=== PATIENT | male | born 1960 | race Caucasian/White ===

== ENCOUNTER 2019-09-23 14:58 | Emergency (ER) | payer MEDICARE ==
[~2019-09-23] VITALS: Ht 188 cm; Wt 95.0 kg
[2019-09-23 16:29] LABS: EOSINOPHILS # (AUTO) 0.1 X10'3 (0-0.9); HEMATOCRIT 52.4 % (42.0-52.0); LYMPHOCYTES % (AUTO) 23.2 % (21-51); MEAN PLATELET VOLUME 8.3 FL (7.4-10.4); MONOCYTES # (AUTO) 0.5 X10'3 (0-0.9); WHITE BLOOD COUNT 8.7 X10'3 (4.5-11.0)
[2019-09-23 16:31] LABS: BASOPHILS % (AUTO) 0.6 % (0-1); EOSINOPHILS % (AUTO) 1.5 % (0-6); MEAN CORPUSCULAR HGB CONC 35.3 g/dL (33.0-36.5); MEAN CORPUSCULAR VOLUME 85.2 FL (78-98); NEUTROPHILS % (AUTO) 68.7 % (42-75); PLATELET COUNT 593 X10'3 (140-440); RED BLOOD COUNT 6.15 X10'6 (4.70-6.10); RED CELL DISTRIBUTION WIDTH 13.7 % (11.5-14.5)
[2019-09-23 16:39] LABS: ALANINE AMINOTRANSFERASE 26 U/L (12-78); ALBUMIN 4.3 G/DL (3.4-5.0); ALBUMIN/GLOBULIN RATIO 1.3 (1.1-1.5); ALKALINE PHOSPHATASE 93 IU/L (46-116); ANION GAP 7 (8-16); ASPARTATE AMINO TRANSFERASE 17 U/L (10-37); BILIRUBIN,TOTAL 0.7 MG/DL (0.1-1.0); BLOOD UREA NITROGEN 12 MG/DL (7-18); BUN/CREATININE RATIO 12.6 (5.4-32.0); CALCIUM 9.1 MG/DL (8.5-10.1); CHLORIDE 103 MMOL/L (99-107); CREATININE 0.95 MG/DL (0.60-1.10); ETHANOL < 0.010 GM/DL (0.0-0.010); GLUCOSE 97 MG/DL (70-104); POTASSIUM 4.5 MMOL/L (3.5-5.1); SODIUM 137 MMOL/L (135-145); TOTAL CARBON DIOXIDE 26.7 MMOL/L (24-32); TOTAL PROTEIN 7.6 G/DL (6.4-8.2); eGFR 81 ML/MIN
[2019-09-23 16:45] LABS: HEMOGLOBIN 18.5 g/dl (14.0-17.9)
[2019-09-23] MEDS ORDERED: SPIR25TA5 PO (16:56)
[2019-09-23] MEDS ORDERED: MELO-102 PO (16:56)
[2019-09-23] MEDS ORDERED: ASPI-1265 PO (16:56)
[2019-09-23] MEDS ORDERED: LISI-600 PO (16:56)
[2019-09-23] MEDS ORDERED: CLON-528 PO (16:56)
[2019-09-23] MEDS ORDERED: CLOP75TA15 PO (16:56)
[2019-09-23] MEDS ORDERED: TRAZ-219 PO (16:56)
[2019-09-23] MEDS ORDERED: BUSP10TA11 PO (16:56)
[2019-09-23] MEDS ORDERED: ATOR80TA PO (16:56)
[2019-09-23] MEDS ORDERED: ADV50100 IH (16:56)
[2019-09-23] MEDS ORDERED: CARV-50 PO (16:56)
[2019-09-23] MEDS ORDERED: NITR0.4T48 SL (16:56)
--- NOTE | 2019-09-23 17:33 | NUR ---
Pt's 's number: [phone]. Her name is Cecile.
[2019-09-23 17:37] LABS: URINE AMPHETAMINE SCREEN POSITIVE (Neg); URINE BARBITUATE SCREEN NEGATIVE (Neg); URINE BENZODIAZEPINES SCREEN NEGATIVE (Neg); URINE CANNABINOID SCREEN POSITIVE (Neg); URINE COCAINE SCREEN NEGATIVE (Neg); URINE METHADONE SCREEN NEGATIVE (Neg); URINE OPIATE SCREEN NEGATIVE (Neg); URINE PHENCYCLIDINE SCREEN NEGATIVE (Neg)
[2019-09-23] MEDS ORDERED: nicotine 21mg patch - 24 hr TD ONE (17:40)
[2019-09-23] MEDS ORDERED: NAPR220T67 PO (17:49)
[2019-09-23] MEDS ORDERED: FLUT16SP13 (17:49)
[2019-09-23] MEDS ORDERED: ASPI81TA52 PO (17:49)
[2019-09-23] MEDS ORDERED: nitroGLYCERIN 0.4mg SUBLingual tab SL PRN (18:10)
--- NOTE | 2019-09-23 19:19 | NUR ---
Pt sitting in bed reading. No distress noted. Breathing even and unlabored.
[2019-09-23 19:35] LABS: CREATININE 0.85 MG/DL (0.60-1.10); POTASSIUM 4.3 MMOL/L (3.5-5.1); eGFR > 90 ML/MIN
[2019-09-23] MEDS: carVEDilol 12.5mg tablet PO SCH (20:45)
[2019-09-23] MEDS ORDERED: hydrOXYzine 25 MG tablet PO ONE (21:50)
--- NOTE | 2019-09-23 22:02 | NUR ---
Pt sitting on his bed appropriately socializing with peer. No distress noted.
--- NOTE | 2019-09-23 23:37 | NUR ---
Pt up to bathroom. No distress noted. Pt was administered Atarax 50mg to assist in decreasing anxiousness and help pt sleep. Will continue to monitor.
[2019-09-23 23:48] LABS: CLARITY,URINE TURBID (Clear); COLOR,URINE YELLOW (Yellow); GLUCOSE, URINE NEGATIVE (Neg); KETONES,URINE NEGATIVE (Neg); LEUKOCYTE ESTERASE ,URINE NEGATIVE (Neg); NITRITES, URINE NEGATIVE (Neg); OCCULT BLOOD,URINE TRACE-INTACT (Neg); PROTEIN,URINE NEGATIVE (Neg); UROBILINOGEN,URINE 0.2 E.U/dL (0.2-1.0)
[2019-09-23 23:50] LABS: UA COLLECTION TYPE VOIDED
[2019-09-24 00:19] LABS: AMORPHOUS URATES 3+; BACTERIA,URINE NONE SEEN /HPF (Neg); MUCUS STRANDS NONE SEEN /LPF (Neg); RBC,URINE 0-2 /HPF (0-2); SQUAMOUS EPITHELIAL CELL,UR NONE SEEN /LPF (FEW); WBC,URINE 0-4 /HPF (0-4)
--- NOTE | 2019-09-24 01:24 | NUR ---
Pt sleeing on back, no distress noted. Even, unlabored breathing noted.
[2019-09-24] MEDS ORDERED: hydrOXYzine 25 MG tablet PO ONE (02:25)
--- NOTE | 2019-09-24 03:35 | NUR ---
Pt continues to sleep, lying on left side. RR even and unlabored.
[2019-09-24 05:22] VITALS: BP_DIAS 83
--- NOTE | 2019-09-24 05:26 | NUR ---
Pt is sitting on the side of his bed eating a snack. No distress noted. RR even and unlabored.
--- NOTE | 2019-09-24 07:03 | NUR ---
Pt sitting in bed with eyes open watching staff. No distress noted. Breathing even and unlabored. Pt approached RN to introduce self and give a brief history of his skin cancer and various ailments. Pt also found socializing with peers and staff. Will continue to monitor.
[2019-09-24] MEDS ORDERED: clopidogrel 75mg tablet PO SCH (08:00)
[2019-09-24] MEDS ORDERED: atorvastatin 20mg tablet PO SCH (08:00)
[2019-09-24] MEDS ORDERED: lisinopril 20mg tablet PO SCH (08:00)
[2019-09-24] MEDS ORDERED: aspirin 81mg tablet.DR PO SCH (08:00)
[2019-09-24] MEDS ORDERED: spironolactone 25 MG tablet PO SCH (08:00)
[2019-09-24] MEDS ORDERED: fluticasone nasal spray 16GM bottle NS SCH (08:00)
[2019-09-24] MEDS: carVEDilol 12.5mg tablet PO SCH (08:22)
[2019-09-24 08:41] VITALS: BP_SYST 123
--- NOTE | 2019-09-24 09:30 | NUR ---
Pt visiting with SO at bedside and socializing with peers. He appears relieved to have SO at bedside. No complaints voiced at this time. Will continue to monitor.
--- NOTE | 2019-09-24 12:51 | NUR ---
Pt up to use the restroom and also speak with [facility] worker. S/O continues to be at bedside for support.
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
== END 2019-09-24 15:51 | disposition home or self-care (01) ==
LOC: ER 15:00
DX: F19.10 Other psychoactive substance abuse, uncomplicated (principal); R45.851 Suicidal ideations; F15.90 Other stimulant use, unspecified, uncomplicated; Z79.899 Other long term (current) drug therapy; Z88.0 Allergy status to penicillin; Z88.1 Allergy status to other antibiotic agents; Z79.82 Long term (current) use of aspirin
CPT/HCPCS: 36415; 80053; 80305; 80320; 81001; 82565; 84132; 84443; 85025; 99285; Z7610

== ENCOUNTER 2019-09-28 10:08 | Emergency (ER) | payer MEDICARE ==
[~2019-09-28] VITALS: Ht 190.5 cm; Wt 98.5 kg
[~2019-09-28 10:08] MED LIST: ASPI81TA52 PO; ATOR80TA PO; CARV-50 PO; CLOP75TA15 PO; FLUT16SP13; LISI-600 PO; NAPR220T67 PO; NITR0.4T48 SL; SPIR25TA5 PO; TRAZ-219 PO
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
[2019-09-28 11:23] LABS: BASOPHILS # (AUTO) 0.1 X10'3 (0-0.2); BASOPHILS % (AUTO) 1.3 % (0-1); EOSINOPHILS # (AUTO) 0.2 X10'3 (0-0.9); EOSINOPHILS % (AUTO) 2.3 % (0-6); HEMATOCRIT 51.1 % (42.0-52.0); HEMOGLOBIN 17.8 g/dl (14.0-17.9); LYMPHOCYTES # (AUTO) 2.4 X10'3 (1.1-4.8); LYMPHOCYTES % (AUTO) 30.5 % (21-51); MEAN CORPUSCULAR HEMOGLOBIN 30.2 PG (27.0-31.0); MEAN CORPUSCULAR HGB CONC 34.8 g/dL (33.0-36.5); MEAN CORPUSCULAR VOLUME 86.6 FL (78-98); MEAN PLATELET VOLUME 8.3 FL (7.4-10.4); MONOCYTES # (AUTO) 0.7 X10'3 (0-0.9); MONOCYTES % (AUTO) 8.5 % (2-12); NEUTROPHILS # (AUTO) 4.6 X10'3 (1.8-7.7); NEUTROPHILS % (AUTO) 57.4 % (42-75); PLATELET COUNT 592 X10'3 (140-440); RED CELL DISTRIBUTION WIDTH 14.1 % (11.5-14.5)
[2019-09-28 11:23] LABS: CLARITY,URINE CLEAR (Clear); COLOR,URINE YELLOW (Yellow); GLUCOSE, URINE NEGATIVE (Neg); KETONES,URINE NEGATIVE (Neg); LEUKOCYTE ESTERASE ,URINE NEGATIVE (Neg); NITRITES, URINE NEGATIVE (Neg); OCCULT BLOOD,URINE NEGATIVE (Neg); PROTEIN,URINE NEGATIVE (Neg); UROBILINOGEN,URINE 0.2 E.U/dL (0.2-1.0)
[2019-09-28 11:25] LABS: UA COLLECTION TYPE CLN CATCH MIDSTREAM
[2019-09-28] MEDS ORDERED: naproxen sodium 220mg tablet PO PRN (11:30)
[2019-09-28 11:36] LABS: ALANINE AMINOTRANSFERASE 34 U/L (12-78); ALBUMIN/GLOBULIN RATIO 1.2 (1.1-1.5); ALKALINE PHOSPHATASE 92 IU/L (46-116); ANION GAP 5 (8-16); ASPARTATE AMINO TRANSFERASE 18 U/L (10-37); BILIRUBIN,TOTAL 0.7 MG/DL (0.1-1.0); BLOOD UREA NITROGEN 11 MG/DL (7-18); CALCIUM 8.9 MG/DL (8.5-10.1); CHLORIDE 104 MMOL/L (99-107); CREATININE 0.92 MG/DL (0.60-1.10); GLUCOSE 85 MG/DL (70-104); POTASSIUM 4.2 MMOL/L (3.5-5.1); SODIUM 138 MMOL/L (135-145); TOTAL CARBON DIOXIDE 28.7 MMOL/L (24-32); TOTAL PROTEIN 7.3 G/DL (6.4-8.2); eGFR 84 ML/MIN
[2019-09-28 11:37] LABS: URINE AMPHETAMINE SCREEN NEGATIVE (Neg); URINE BARBITUATE SCREEN NEGATIVE (Neg); URINE BENZODIAZEPINES SCREEN NEGATIVE (Neg); URINE CANNABINOID SCREEN POSITIVE (Neg); URINE COCAINE SCREEN NEGATIVE (Neg); URINE METHADONE SCREEN NEGATIVE (Neg); URINE OPIATE SCREEN NEGATIVE (Neg); URINE PHENCYCLIDINE SCREEN NEGATIVE (Neg)
[2019-09-28 11:45] LABS: ETHANOL < 0.010 GM/DL (0.0-0.010)
--- NOTE | 2019-09-28 12:07 | NUR ---
PACKET FAXED TO [facility].
--- NOTE | 2019-09-28 12:27 | NUR ---
PT BECOMING INCREASINGLY AGITATED, PACING AROUND THE ROOM, SLAMMING ROOM DOORS. AWARE.
[2019-09-28] MEDS ORDERED: LORazepam 1 MG tablet PO ONE (12:30)
--- NOTE | 2019-09-28 12:59 | NUR ---
Pt SO went home. Pt eating lunch
--- NOTE | 2019-09-28 13:37 | NUR ---
Pt asleep on right side in no apparent distress. Respirations are even and unlabored
--- NOTE | 2019-09-28 14:10 | NUR ---
Pt asleep on left side in no apparent distress. Respirations are even and unlabored
--- NOTE | 2019-09-28 14:38 | NUR ---
Pt up to the bathroom
--- NOTE | 2019-09-28 15:54 | NUR ---
Pt asleep on right side in no apparent distress. Respirations are even and unlabored
--- NOTE | 2019-09-28 16:20 | NUR ---
Giving primary RN break, pt. sleeping on left side in no distress.
--- NOTE | 2019-09-28 16:36 | NUR ---
[facility] at bedside
--- NOTE | 2019-09-28 17:17 | NUR ---
Pt up to bathroom
--- NOTE | 2019-09-28 18:56 | NUR ---
One to one with the patient to assess for the presense of depressive symptoms. The patient is alert and oriented but has poor short term memory. He denies suicidal thoughts "no never" HE denies thoughts to harm others. When asked why he was here he stated "because I'm driving everybody nuts. I say the same things over and over again" He stated his mood was "good"
--- NOTE | 2019-09-28 19:18 | NUR ---
The patient approached the nursing station and was angry and irritable. Became hostile with offset platemaker. Beronica called.
--- NOTE | 2019-09-28 19:58 | NUR ---
PT LEFT A NOTE IN FRONT OF ME ON NURSES STATION AND SAID '' NOT ULTIMATOM OR ANYTHING LIKE THAT" THE NOTE READS ''BY HIMSLEF WHEN IM DISCHARGED UNDERSTOOD'' WITH A ''YES'', ''NO'', CHECK BOX ON IT
[2019-09-28] MEDS ORDERED: carVEDilol 12.5mg tablet PO SCH (20:00)
--- NOTE | 2019-09-28 20:18 | NUR ---
THe patient's behavior has been erratic. He is making delusional statements. He stated he 30 times. He reports that he worked for [email or web address], [employer], [employer] etc. When asked how many jobs he has had he stated "you have to ask Marcos" His thought pattern is difficult to follow at times. He reports he can speak many languages. His mood is labile.
[2019-09-28] MEDS ORDERED: traZODone 50mg tablet PO SCH (21:00)
[2019-09-28 22:17] VITALS: BP 115/76
[2019-09-29] MEDS ORDERED: atorvastatin 20mg tablet PO SCH (08:00)
[2019-09-29] MEDS ORDERED: spironolactone 25 MG tablet PO SCH (08:00)
[2019-09-29] MEDS ORDERED: lisinopril 20mg tablet PO SCH (08:00)
[2019-09-29] MEDS ORDERED: clopidogrel 75mg tablet PO SCH (08:00)
[2019-09-29] MEDS ORDERED: aspirin 81mg tablet.DR PO SCH (08:00)
== END 2019-09-28 22:42 | disposition home or self-care (01) ==
LOC: ER 10:08
DX: F79 Unspecified intellectual disabilities (principal); R45.851 Suicidal ideations; F12.90 Cannabis use, unspecified, uncomplicated; F15.90 Other stimulant use, unspecified, uncomplicated; Z79.899 Other long term (current) drug therapy; Z88.0 Allergy status to penicillin; Z88.1 Allergy status to other antibiotic agents; Z79.82 Long term (current) use of aspirin
CPT/HCPCS: 36415; 80053; 80305; 80320; 81003; 84443; 85025; 99284

== ENCOUNTER 2019-10-04 03:17 | Emergency (ER) | payer MEDICARE ==
[~2019-10-04] VITALS: Ht 188 cm; Wt 100.0 kg
[~2019-10-04 03:17] MED LIST changes: -FLUT16SP13; -NITR0.4T48 SL
[2019-10-04 03:33] VITALS: BP 139/76
== END 2019-10-04 05:44 | disposition left against medical advice (07) ==
LOC: ER 03:18
DX: M79.602 Pain in left arm (principal); Z53.21 Procedure and treatment not carried out due to patient leaving prior to being seen by health care provider

== ENCOUNTER 2019-10-15 01:28 | Emergency (ER) | payer MEDICARE ==
[~2019-10-15] VITALS: Ht 188 cm; Wt 101.4 kg
[~2019-10-15 01:28] MED LIST changes: -TRAZ-219 PO; +TRAZ-256 PO
[2019-10-15 01:46] VITALS: BP 133/92
== END 2019-10-15 02:42 | disposition left against medical advice (07) ==
LOC: ER 01:28
DX: Z76.0 Encounter for issue of repeat prescription (principal); Z53.21 Procedure and treatment not carried out due to patient leaving prior to being seen by health care provider

== ENCOUNTER 2020-03-10 10:15 | Emergency (ER) | payer MEDICARE ==
[~2020-03-10] VITALS: Ht 188 cm; Wt 110.0 kg
[2020-03-10 11:00] LABS: BASOPHILS # (AUTO) 0.1 X10'3 (0-0.2); BASOPHILS % (AUTO) 0.7 % (0-1); EOSINOPHILS # (AUTO) 0.2 X10'3 (0-0.9); EOSINOPHILS % (AUTO) 2.5 % (0-6); HEMATOCRIT 49.7 % (42.0-52.0); HEMOGLOBIN 17.1 g/dl (14.0-17.9); LYMPHOCYTES # (AUTO) 2.2 X10'3 (1.1-4.8); LYMPHOCYTES % (AUTO) 26.8 % (21-51); MEAN CORPUSCULAR HEMOGLOBIN 29.6 PG (27.0-31.0); MEAN CORPUSCULAR HGB CONC 34.4 g/dL (33.0-36.5); MEAN PLATELET VOLUME 8.2 FL (7.4-10.4); MONOCYTES # (AUTO) 0.7 X10'3 (0-0.9); MONOCYTES % (AUTO) 7.8 % (2-12); NEUTROPHILS # (AUTO) 5.2 X10'3 (1.8-7.7); NEUTROPHILS % (AUTO) 62.2 % (42-75); PLATELET COUNT 590 X10'3 (140-440); RED BLOOD COUNT 5.78 X10'6 (4.70-6.10); RED CELL DISTRIBUTION WIDTH 13.9 % (11.5-14.5); WHITE BLOOD COUNT 8.3 X10'3 (4.5-11.0)
[2020-03-10 11:03] VITALS: BP 124/85
[2020-03-10 11:06] LABS: PARTIAL THROMBOPLASTIN TIME 34 SECONDS (22-32)
[2020-03-10 11:08] LABS: ALANINE AMINOTRANSFERASE 45 U/L (12-78); ALBUMIN 3.8 G/DL (3.4-5.0); ALBUMIN/GLOBULIN RATIO 1.1 (1.1-1.5); ALKALINE PHOSPHATASE 104 IU/L (46-116); ANION GAP 9 (8-16); ASPARTATE AMINO TRANSFERASE 25 U/L (10-37); BILIRUBIN,TOTAL 0.6 MG/DL (0.1-1.0); BLOOD UREA NITROGEN 11 MG/DL (7-18); BUN/CREATININE RATIO 11.8 (5.4-32.0); CALCIUM 8.6 MG/DL (8.5-10.1); CHLORIDE 104 MMOL/L (99-107); CREATININE 0.93 MG/DL (0.60-1.10); GLUCOSE 95 MG/DL (70-104); LIPASE 169 U/L (73-393); POTASSIUM 4.2 MMOL/L (3.5-5.1); SODIUM 138 MMOL/L (135-145); TOTAL PROTEIN 7.4 G/DL (6.4-8.2); eGFR 83 ML/MIN
[2020-03-10 11:27] LABS: CLARITY,URINE CLEAR (Clear); COLOR,URINE YELLOW (Yellow); GLUCOSE, URINE NEGATIVE (Neg); KETONES,URINE NEGATIVE (Neg); LEUKOCYTE ESTERASE ,URINE NEGATIVE (Neg); NITRITES, URINE NEGATIVE (Neg); OCCULT BLOOD,URINE NEGATIVE (Neg); PH,URINE 5.5 (4.8-8.0); PROTEIN,URINE NEGATIVE (Neg); UA COLLECTION TYPE URINAL; UROBILINOGEN,URINE 0.2 E.U/dL (0.2-1.0)
[2020-03-10] MEDS ORDERED: PANT-47 PO (11:30)
== END 2020-03-10 11:40 | disposition home or self-care (01) ==
LOC: ER 10:15
DX: R10.84 Generalized abdominal pain (principal); R19.5 Other fecal abnormalities; I25.10 Atherosclerotic heart disease of native coronary artery without angina pectoris; I25.2 Old myocardial infarction; F12.90 Cannabis use, unspecified, uncomplicated; F15.90 Other stimulant use, unspecified, uncomplicated; F17.200 Nicotine dependence, unspecified, uncomplicated; Z86.73 Personal history of transient ischemic attack (TIA), and cerebral infarction without residual deficits; Z88.0 Allergy status to penicillin; Z79.82 Long term (current) use of aspirin; Z79.899 Other long term (current) drug therapy
CPT/HCPCS: 36415; 71045; 74176; 80053; 81003; 83690; 84484; 85025; 85610; 85730; 93005; 99285

== ENCOUNTER 2020-05-22 11:54 | Emergency (ER) | payer MEDICARE ==
[~2020-05-22] VITALS: Ht 180.3 cm; Wt 80.0 kg
[~2020-05-22 11:54] MED LIST changes: +PANT-47 PO
[2020-05-22 12:03] VITALS: BP 112/77
[2020-05-22] MEDS ORDERED: AZIT-72 PO (12:31)
== END 2020-05-22 12:42 | disposition home or self-care (01) ==
LOC: ER 11:55
DX: H66.92 Otitis media, unspecified, left ear (principal); R05 Cough; I25.10 Atherosclerotic heart disease of native coronary artery without angina pectoris; I25.2 Old myocardial infarction; F17.200 Nicotine dependence, unspecified, uncomplicated; F10.10 Alcohol abuse, uncomplicated; F12.90 Cannabis use, unspecified, uncomplicated; F15.90 Other stimulant use, unspecified, uncomplicated; Z86.73 Personal history of transient ischemic attack (TIA), and cerebral infarction without residual deficits; Z88.0 Allergy status to penicillin; Z79.82 Long term (current) use of aspirin; Z79.2 Long term (current) use of antibiotics; Z79.899 Other long term (current) drug therapy; Y90.9 Presence of alcohol in blood, level not specified
CPT/HCPCS: 99283

== ENCOUNTER 2020-11-24 07:48 | Emergency (ER) | payer MEDICARE, OTHER ==
[~2020-11-24] VITALS: Ht 188 cm; Wt 100.0 kg
[~2020-11-24 07:48] MED LIST changes: -LISI-600 PO; +LISI20TA28 PO
[2020-11-24 07:49] VITALS: BP 143/87
[2020-11-24] MEDS ORDERED: LIDOcaine 1% W/epiNEPHrine 1:100,000 20ml vial ONE (08:00)
[2020-11-24] MEDS ORDERED: HYDROcodone/acetaminophen 10/325mg tab PO ONE (09:00)
[2020-11-24] MEDS ORDERED: ibuprofen 200mg tablet PO ONE (09:00)
[2020-11-24] MEDS ORDERED: ondansetron 4mg rapidly disintigrating tab PO ONE (09:00)
[2020-11-24] MEDS ORDERED: TETanus/Pertussis (Acell)/Diphther VAC/PF (Tdap-Adult) 0.5ml syringe IMVAC ONE (09:00)
[2020-11-24] MEDS ORDERED: clindamycin 150mg capsule PO ONE (09:00)
--- NOTE | 2020-11-24 10:01 | NUR ---
Dr Mcgarry at bedside.
[2020-11-24] MEDS ORDERED: CLIN150C2 PO (10:09)
== END 2020-11-24 10:45 | disposition home or self-care (01) ==
LOC: ER 07:48
DX: L02.31 Cutaneous abscess of buttock (principal); I25.10 Atherosclerotic heart disease of native coronary artery without angina pectoris; I25.2 Old myocardial infarction; F17.200 Nicotine dependence, unspecified, uncomplicated; F12.90 Cannabis use, unspecified, uncomplicated; F15.90 Other stimulant use, unspecified, uncomplicated; Z72.89 Other problems related to lifestyle; Z86.73 Personal history of transient ischemic attack (TIA), and cerebral infarction without residual deficits; Z88.1 Allergy status to other antibiotic agents; Z79.82 Long term (current) use of aspirin; Z79.2 Long term (current) use of antibiotics; Z79.899 Other long term (current) drug therapy; Z98.890 Other specified postprocedural states
CPT/HCPCS: 10060; 90471; 90715; 99284

== ENCOUNTER 2021-01-17 16:15 | Inpatient (IN) | payer OTHER ==
[~2021-01-17] VITALS: Ht 188 cm; Wt 97.0 kg
[2021-01-17] MEDS ORDERED: aspirin 81mg tab.chew PO ONE (16:40)
[2021-01-17 16:58] LABS: BASOPHILS % (AUTO) 0.5 % (0-1); EOSINOPHILS # (AUTO) 0.2 X10'3 (0-0.9); HEMATOCRIT 48.6 % (42.0-52.0); LYMPHOCYTES # (AUTO) 1.7 X10'3 (1.1-4.8); LYMPHOCYTES % (AUTO) 21.5 % (21-51); MEAN CORPUSCULAR HEMOGLOBIN 28.6 PG (27.0-31.0); MEAN CORPUSCULAR HGB CONC 32.9 g/dL (33.0-36.5); MEAN CORPUSCULAR VOLUME 86.9 FL (78-98); MEAN PLATELET VOLUME 8.6 FL (7.4-10.4); MONOCYTES # (AUTO) 0.4 X10'3 (0-0.9); MONOCYTES % (AUTO) 5.5 % (2-12); NEUTROPHILS # (AUTO) 5.5 X10'3 (1.8-7.7); NEUTROPHILS % (AUTO) 70.5 % (42-75); PLATELET COUNT 447 X10'3 (140-440); RED BLOOD COUNT 5.59 X10'6 (4.70-6.10); RED CELL DISTRIBUTION WIDTH 14.1 % (11.5-14.5); WHITE BLOOD COUNT 7.8 X10'3 (4.5-11.0)
[2021-01-17 17:09] LABS: PARTIAL THROMBOPLASTIN TIME 30 SECONDS (22-32)
[2021-01-17 17:12] LABS: ALANINE AMINOTRANSFERASE 26 U/L (12-78); ALBUMIN 3.7 G/DL (3.4-5.0); ALBUMIN/GLOBULIN RATIO 1.2 (1.1-1.5); ALKALINE PHOSPHATASE 76 IU/L (46-116); ANION GAP 9 (8-16); ASPARTATE AMINO TRANSFERASE 21 U/L (10-37); BILIRUBIN,TOTAL 0.9 MG/DL (0.1-1.0); BLOOD UREA NITROGEN 17 MG/DL (7-18); CALCIUM 8.7 MG/DL (8.5-10.1); CHLORIDE 106 MMOL/L (99-107); GLUCOSE 76 MG/DL (70-104); POTASSIUM 3.8 MMOL/L (3.5-5.1); SODIUM 144 MMOL/L (135-145); TOTAL CARBON DIOXIDE 29.2 MMOL/L (24-32); TOTAL PROTEIN 6.8 G/DL (6.4-8.2); eGFR 76 ML/MIN
[2021-01-17 18:30] LABS: URINE AMPHETAMINE SCREEN NEGATIVE (Neg); URINE BARBITUATE SCREEN NEGATIVE (Neg); URINE BENZODIAZEPINES SCREEN NEGATIVE (Neg); URINE CANNABINOID SCREEN POSITIVE (Neg); URINE COCAINE SCREEN NEGATIVE (Neg); URINE METHADONE SCREEN NEGATIVE (Neg); URINE OPIATE SCREEN NEGATIVE (Neg); URINE PHENCYCLIDINE SCREEN NEGATIVE (Neg)
[2021-01-17] MEDS ORDERED: normal saline 1000ML IV soln IVB ONE (19:45)
[2021-01-17] MEDS ORDERED: potassium Cl 20 mEq SR tablet PO PRN ×2 (19:55)
[2021-01-17] MEDS ORDERED: aminophylline 250mg/10ml inj. IV PRN (19:55)
[2021-01-17] MEDS ORDERED: HYDROcodone/acetaminophen 10/325mg tab PO PRN (19:55)
[2021-01-17] MEDS ORDERED: magnesium 4gm in 100ml NS 100 ML IV PRN (19:55)
[2021-01-17] MEDS ORDERED: regadenoson 0.4mg/5ml syringe IV PRN (19:55)
[2021-01-17] MEDS ORDERED: acetaminophen 325mg tablet PO PRN (19:55)
[2021-01-17] MEDS ORDERED: magnesium Cl slow-release 64mg tablet PO PRN (19:55)
[2021-01-17] MEDS ORDERED: morphine 2 MG/ML inj. syringe IV PRN ×2 (19:55)
[2021-01-17] MEDS ORDERED: nitroGLYCERIN 0.4mg SUBLingual tab SL PRN (19:55)
[2021-01-17] MEDS ORDERED: ondansetron/PF 4mg/2ml inj IV PRN (19:55)
[2021-01-17] MEDS ORDERED: potassium Cl 40MEQ/1/2NS 520ml 520 ML IV PRN ×2 (19:55)
[2021-01-17] MEDS ORDERED: HYDROcodone/acetaminophen 5mg/325mg tablet PO PRN (19:55)
[2021-01-17] MEDS ORDERED: metoprolol tartrate 1mg/ml inj IV PRN (19:55)
[2021-01-17] MEDS ORDERED: magnesium 2GM in 50ml NS 50 ML IV PRN (19:55)
[2021-01-17] MEDS: K and/or MAG REPLACEMENT MC SCH (20:00)
[2021-01-17] MEDS ORDERED: MELO-102 PO (20:32)
[2021-01-17] MEDS ORDERED: OMEP20TA23 PO (20:35)
[2021-01-17] MEDS ORDERED: PRAZ2CAP2 PO (20:36)
[2021-01-17] MEDS ORDERED: QUET25TA PO (20:37)
[2021-01-17] MEDS ORDERED: BUSP10TA11 PO (20:40)
[2021-01-17] MEDS ORDERED: BUSP5TAB3 PO (20:40)
[2021-01-17] MEDS ORDERED: D3 (20:44)
[2021-01-17] MEDS ORDERED: temazepam 15mg capsule PO PRN (21:00)
[2021-01-17] MEDS: normal saline 1000ml 1,000 ML IV SCH (21:11)
[2021-01-17] MEDS: docusate sod 100mg capsule PO SCH (21:12)
[2021-01-17] MEDS: heparin, porcine 5000 units/ml vial SQ SCH (21:12)
--- NOTE | 2021-01-18 06:30 | NUR ---
Assumed care of pt. Sleeping in [facility]. RR e/u. Awaiting inpt bed. Will continue to monitor.
[2021-01-18] MEDS: normal saline 1000ml 1,000 ML IV SCH ×2 (06:58→15:53)
[2021-01-18] MEDS: pantoprazole 40mg Tablet.DR PO SCH ×2 (07:30→10:24)
[2021-01-18 07:52] LABS: BASOPHILS # (AUTO) 0.1 X10'3 (0-0.2); BASOPHILS % (AUTO) 0.8 % (0-1); EOSINOPHILS # (AUTO) 0.2 X10'3 (0-0.9); EOSINOPHILS % (AUTO) 3.1 % (0-6); HEMATOCRIT 42.8 % (42.0-52.0); HEMOGLOBIN 14.6 g/dl (14.0-17.9); LYMPHOCYTES % (AUTO) 29.9 % (21-51); MEAN CORPUSCULAR HEMOGLOBIN 29.3 PG (27.0-31.0); MEAN CORPUSCULAR HGB CONC 34.1 g/dL (33.0-36.5); MEAN CORPUSCULAR VOLUME 85.9 FL (78-98); MEAN PLATELET VOLUME 8.4 FL (7.4-10.4); MONOCYTES # (AUTO) 0.4 X10'3 (0-0.9); MONOCYTES % (AUTO) 5.5 % (2-12); NEUTROPHILS % (AUTO) 60.7 % (42-75); PLATELET COUNT 406 X10'3 (140-440); RED BLOOD COUNT 4.98 X10'6 (4.70-6.10); RED CELL DISTRIBUTION WIDTH 14.3 % (11.5-14.5); WHITE BLOOD COUNT 6.5 X10'3 (4.5-11.0)
[2021-01-18] MEDS: K and/or MAG REPLACEMENT MC SCH (08:00)
[2021-01-18] MEDS ORDERED: carVEDilol 12.5mg tablet PO SCH (08:00)
[2021-01-18] MEDS ORDERED: atorvastatin 20mg tablet PO SCH (08:00)
[2021-01-18] MEDS ORDERED: aspirin 81mg tablet.DR PO SCH (08:00)
[2021-01-18] MEDS ORDERED: spironolactone 25 MG tablet PO SCH (08:00)
[2021-01-18] MEDS ORDERED: lisinopril 20mg tablet PO SCH (08:00)
[2021-01-18] MEDS: docusate sod 100mg capsule PO SCH (08:00)
[2021-01-18] MEDS ORDERED: busPIRone 5mg tablet PO SCH (08:00)
[2021-01-18 08:12] LABS: ALANINE AMINOTRANSFERASE 19 U/L (12-78); ALBUMIN/GLOBULIN RATIO 1.1 (1.1-1.5); ALKALINE PHOSPHATASE 66 IU/L (46-116); ANION GAP 8 (8-16); ASPARTATE AMINO TRANSFERASE 17 U/L (10-37); BILIRUBIN,TOTAL 0.7 MG/DL (0.1-1.0); BLOOD UREA NITROGEN 19 MG/DL (7-18); BUN/CREATININE RATIO 23.5 (5.4-32.0); CALCIUM 8.2 MG/DL (8.5-10.1); CHLORIDE 111 MMOL/L (99-107); CREATININE 0.81 MG/DL (0.60-1.10); GLUCOSE 98 MG/DL (70-104); POTASSIUM 4.2 MMOL/L (3.5-5.1); SODIUM 144 MMOL/L (135-145); TOTAL PROTEIN 5.7 G/DL (6.4-8.2); eGFR > 90 ML/MIN
[2021-01-18 08:15] LABS: CHOL/HDL RATIO 3.2 (0.00-4.99); CHOLESTEROL 103 MG/DL (0-200); HDL CHOLESTEROL 32 MG/DL (35-60); LDL CHOLESTEROL 58 MG/DL (50-100); MAGNESIUM 1.7 MG/DL (1.5-2.4); TRIGLYCERIDES 104 MG/DL (20-135)
[2021-01-18] MEDS: heparin, porcine 5000 units/ml vial SQ SCH (10:00)
--- NOTE | 2021-01-18 10:25 | NUR ---
Nuc med cancelled stress test d/t pt having stress test done last week at Dr. Dexter's office.
--- NOTE | 2021-01-18 11:11 | NUR ---
US tech at bedside for echo study as ordered.
[2021-01-18] MEDS ORDERED: NICO-687 TOP (16:05)
[2021-01-18 17:00] VITALS: BP 98/56
[2021-01-18] MEDS ORDERED: prazosin 1mg capsule PO SCH (21:00)
[2021-01-18] MEDS ORDERED: QUEtiapine 25mg tablet PO SCH (21:00)
== END 2021-01-18 17:00 | disposition home or self-care (01) | DRG 880 ==
LOC: ER 16:16 → ED HOLD 19:53
PROVIDERS: ADMIT Internal Medicine; ATTEND Family Medicine
DX: F41.9 Anxiety disorder, unspecified (principal); G89.29 Other chronic pain; I25.10 Atherosclerotic heart disease of native coronary artery without angina pectoris; F12.90 Cannabis use, unspecified, uncomplicated; F17.210 Nicotine dependence, cigarettes, uncomplicated; M25.50 Pain in unspecified joint; F10.10 Alcohol abuse, uncomplicated; I25.2 Old myocardial infarction; Z86.73 Personal history of transient ischemic attack (TIA), and cerebral infarction without residual deficits; Z95.1 Presence of aortocoronary bypass graft; Z95.5 Presence of coronary angioplasty implant and graft; Z88.1 Allergy status to other antibiotic agents; Z71.6 Tobacco abuse counseling
CPT/HCPCS: 36415; 71045; 80053; 80061; 80305; 83735; 83880; 84484; 85025; 85610; 85730; 93005; 93306; 93308; 99285; G0378; J1644; J7030

== ENCOUNTER 2021-02-26 12:36 | Day surgery (SDC) | payer MEDICARE ==
[2021-02-21 11:34] LABS: CLARITY,URINE SLIGHTLY CLOUDY (Clear); COLOR,URINE YELLOW (Yellow); GLUCOSE, URINE NEGATIVE (Neg); KETONES,URINE NEGATIVE (Neg); LEUKOCYTE ESTERASE ,URINE NEGATIVE (Neg); NITRITES, URINE NEGATIVE (Neg); OCCULT BLOOD,URINE NEGATIVE (Neg); PROTEIN,URINE NEGATIVE (Neg); UROBILINOGEN,URINE 0.2 E.U/dL (0.2-1.0)
[2021-02-21 11:36] LABS: BASOPHILS # (AUTO) 0.1 X10'3 (0-0.2); BASOPHILS % (AUTO) 0.7 % (0-1); EOSINOPHILS # (AUTO) 0.2 X10'3 (0-0.9); EOSINOPHILS % (AUTO) 2.7 % (0-6); HEMATOCRIT 49.9 % (42.0-52.0); HEMOGLOBIN 17.1 g/dl (14.0-17.9); LYMPHOCYTES # (AUTO) 1.6 X10'3 (1.1-4.8); MEAN CORPUSCULAR HEMOGLOBIN 29.7 PG (27.0-31.0); MEAN CORPUSCULAR HGB CONC 34.3 g/dL (33.0-36.5); MEAN CORPUSCULAR VOLUME 86.6 FL (78-98); MEAN PLATELET VOLUME 8.4 FL (7.4-10.4); MONOCYTES # (AUTO) 0.4 X10'3 (0-0.9); MONOCYTES % (AUTO) 5.8 % (2-12); NEUTROPHILS # (AUTO) 4.8 X10'3 (1.8-7.7); NEUTROPHILS % (AUTO) 67.8 % (42-75); PLATELET COUNT 433 X10'3 (140-440); RED BLOOD COUNT 5.76 X10'6 (4.70-6.10); RED CELL DISTRIBUTION WIDTH 14.9 % (11.5-14.5); WHITE BLOOD COUNT 7.1 X10'3 (4.5-11.0)
[2021-02-21 11:42] LABS: UA COLLECTION TYPE CLN CATCH MIDSTREAM
[2021-02-21 11:43] LABS: BACTERIA,URINE 1+ /HPF (Neg); HYALINE CASTS 0-3 /LPF (NEGATIVE); MUCUS STRANDS MANY /LPF (Neg); RBC,URINE 0-2 /HPF (0-2); SQUAMOUS EPITHELIAL CELL,UR FEW /LPF (FEW); WBC,URINE 0-4 /HPF (0-4)
[2021-02-21 11:45] LABS: ALBUMIN 3.8 G/DL (3.4-5.0); ANION GAP 10 (8-16); BLOOD UREA NITROGEN 17 MG/DL (7-18); CALCIUM 8.9 MG/DL (8.5-10.1); CHLORIDE 105 MMOL/L (99-107); CREATININE 0.81 MG/DL (0.60-1.10); GLUCOSE 88 MG/DL (70-104); POTASSIUM 4.1 MMOL/L (3.5-5.1); SODIUM 140 MMOL/L (135-145); TOTAL CARBON DIOXIDE 24.8 MMOL/L (24-32); eGFR > 90 ML/MIN
[2021-02-21 11:47] LABS: PARTIAL THROMBOPLASTIN TIME 31 SECONDS (22-32)
[2021-02-26] VITALS (9 sets, daily range): BP systolic 92–125; BP diastolic 49–79
[~2021-02-26] VITALS: Ht 188 cm; Wt 94.9 kg
[~2021-02-26 12:36] MED LIST changes: +BUSP10TA11 PO; +BUSP5TAB3 PO; -CLOP75TA15 PO; +D3; +MELO-102 PO; -NAPR220T67 PO; +OMEP20TA23 PO; -PANT-47 PO; +PRAZ2CAP2 PO; +QUET25TA PO
[2021-02-26] MEDS ORDERED: normal saline 1000ml 1,000 ML IV SCH (13:00)
[2021-02-26] MEDS ORDERED: cefazolin/dext.iso 2gm/100ml 100 ML IV ONE (13:00)
[2021-02-26] MEDS ORDERED: BUS15T PO (13:09)
[2021-02-26] MEDS ORDERED: BACL-11 PO (13:10)
[2021-02-26] MEDS ORDERED: ceFAZolin 1000mg inj ONE (15:11)
[2021-02-26] MEDS ORDERED: midazolam 1 mg/ML 2ml injection ONE ×2 (15:11→15:57)
[2021-02-26] MEDS ORDERED: fentaNYL/PF 50MCG/1 ML 2ML syringe ONE (15:11)
[2021-02-26] MEDS ORDERED: ceFAZolin 2gm in dextrose, iso 50 ML IV ONE (15:11)
[2021-02-26] MEDS ORDERED: LIDOcaine 1% W/epiNEPHrine 1:100,000 20ml vial ONE (15:12)
[2021-02-26] MEDS ORDERED: HYDROcodone/acetaminophen 5mg/325mg tablet PO PRN (17:05)
[2021-02-26] MEDS ORDERED: LORazepam 1 MG tablet PO PRN (17:05)
[2021-02-26] MEDS ORDERED: HYDROcodone/acetaminophen 10/325mg tab PO PRN (17:05)
[2021-02-26] MEDS ORDERED: pneumococcal 23-VAL P-sac vacc 25 mcg/0.5ml vial IMVAC ONE (20:50)
== END 2021-02-26 18:45 | disposition home or self-care (01) ==
LOC: SSTAY O 12:36
PROVIDERS: ATTEND Internal Medicine Interventional Cardiology
DX: I42.0 Dilated cardiomyopathy (principal); I25.5 Ischemic cardiomyopathy; I11.0 Hypertensive heart disease with heart failure; I50.22 Chronic systolic (congestive) heart failure; F41.9 Anxiety disorder, unspecified; F17.210 Nicotine dependence, cigarettes, uncomplicated; I25.110 Atherosclerotic heart disease of native coronary artery with unstable angina pectoris; E78.5 Hyperlipidemia, unspecified; G89.29 Other chronic pain; Z79.899 Other long term (current) drug therapy; Z79.82 Long term (current) use of aspirin; Z85.828 Personal history of other malignant neoplasm of skin; Z88.0 Allergy status to penicillin; Z88.8 Allergy status to other drugs, medicaments and biological substances
CPT/HCPCS: 33249; 36415; 80048; 81001; 85025; 85610; 85730; 93005; 99152; 99153; C1721; C1895; J0690; J2250; J3010; A4565; A4620; A6258

== ENCOUNTER 2022-08-23 19:50 | Emergency (ER) | payer MEDICARE, MEDICAID ==
[~2022-08-23] VITALS: Ht 188 cm; Wt 95.5 kg
[~2022-08-23 19:50] MED LIST changes: +BACL-11 PO; +BUS15T PO; -BUSP10TA11 PO; -BUSP5TAB3 PO; -D3; -OMEP20TA23 PO; -PRAZ2CAP2 PO; -QUET25TA PO
[2022-08-23 20:21] VITALS: BP 134/84
[2022-08-23 21:02] LABS: BASOPHILS # (AUTO) 0.1 X10'3 (0-0.2); BASOPHILS % (AUTO) 0.6 % (0-1); EOSINOPHILS # (AUTO) 0.3 X10'3 (0-0.9); EOSINOPHILS % (AUTO) 2.2 % (0-6); HEMATOCRIT 46.7 % (42.0-52.0); HEMOGLOBIN 15.4 g/dl (14.0-17.9); LYMPHOCYTES # (AUTO) 2.4 X10'3 (1.1-4.8); LYMPHOCYTES % (AUTO) 20.3 % (21-51); MEAN CORPUSCULAR HEMOGLOBIN 28.4 PG (27.0-31.0); MEAN CORPUSCULAR VOLUME 85.9 FL (78-98); MEAN PLATELET VOLUME 8.2 FL (7.4-10.4); MONOCYTES % (AUTO) 8.3 % (2-12); NEUTROPHILS # (AUTO) 8.1 X10'3 (1.8-7.7); NEUTROPHILS % (AUTO) 68.6 % (42-75); PLATELET COUNT 549 X10'3 (140-440); RED BLOOD COUNT 5.44 X10'6 (4.70-6.10); RED CELL DISTRIBUTION WIDTH 14.2 % (11.5-14.5); WHITE BLOOD COUNT 11.8 X10'3 (4.5-11.0)
[2022-08-23 21:09] LABS: ALANINE AMINOTRANSFERASE 28 U/L (12-78); ALBUMIN/GLOBULIN RATIO 1.2 (1.1-1.5); ALKALINE PHOSPHATASE 98 IU/L (46-116); ANION GAP 7 (8-16); ASPARTATE AMINO TRANSFERASE 27 U/L (10-37); BILIRUBIN,TOTAL 0.7 MG/DL (0.1-1.0); BLOOD UREA NITROGEN 16 MG/DL (7-18); BUN/CREATININE RATIO 17.2 (5.4-32.0); CALCIUM 9.2 MG/DL (8.5-10.1); CHLORIDE 105 MMOL/L (99-107); CREATININE 0.93 MG/DL (0.60-1.10); GLUCOSE 121 MG/DL (70-104); POTASSIUM 4.4 MMOL/L (3.5-5.1); SODIUM 141 MMOL/L (135-145); TOTAL CARBON DIOXIDE 28.9 MMOL/L (24-32); TOTAL PROTEIN 7.3 G/DL (6.4-8.2); eGFR 82 ML/MIN
[2022-08-23 21:17] LABS: ETHANOL < 0.010 GM/DL (0.0-0.010)
== END 2022-08-23 21:41 | disposition left against medical advice (07) ==
LOC: ER 19:52
DX: R07.89 Other chest pain (principal); Z20.822 Contact with and (suspected) exposure to COVID-19; Z53.21 Procedure and treatment not carried out due to patient leaving prior to being seen by health care provider
CPT/HCPCS: 36415; 80053; 80320; 84443; 85025; 87811; 93005